=== PATIENT | male | born 1935 | race Caucasian/White ===

== ENCOUNTER 2019-09-30 18:00 | Inpatient (IN) | payer MEDICARE, OTHER ==
[2019-10-01 01:18] VITALS: BP 159/61
[2019-10-01] MEDS ORDERED: Magnesium Hydroxide (MOM) 30 mL UDC PO PRN (04:32)
[2019-10-01] MEDS: Docusate Sodium/Senna Tab PO SCH ×2 (08:15→17:15)
[2019-10-01] MEDS: Multivitamin Tab PO SCH (08:15)
[2019-10-01] MEDS: POLYETHYLENE GLYCOL 3350 17 GM PACK PO SCH (08:16)
--- NOTE | 2019-10-01 12:26 | Psychiatric Evaluation ---
DATE OF SERVICE: 10/01/2019 Staff was spoken to. The patient is interviewed. Mood is noted to be irritable. Affect is constricted. CHIEF COMPLAINT: "I don't know, they are not giving me full diet, they are giving me a balance diet and I don't like it. I am losing weight." HISTORY OF PRESENT ILLNESS: This is the first psychiatric hospitalization to [facility] for this patient who has been diagnosed to be depressed and is maintained on Remeron. The patient is being followed by Dr. López on an outpatient basis. The patient has been getting agitated and aggressive and has been isolating himself and not able to care for self and the patient's depression has been getting worse and hence the patient has been referred over here for stabilization. Chart is reviewed. The patient is interviewed. The patient at this time is more focused on his weight loss and not getting his bank statements and losing weight. PAST PSYCHIATRIC HISTORY: The patient denies any prior psychiatric hospitalizations. MEDICAL HISTORY: Physical examination is requested by Dr. Manley and is noted to be significant for ____. SUBSTANCE ABUSE HISTORY: None. 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 The patient is a resident of the halfway facility. MENTAL STATUS EXAMINATION: The patient is an 84-year-old thin built, superficially cooperative. Eye contact is noted to be poor. Mood is noted to be depressed. Affect is constricted. The patient is getting easily irritable and angry. Insight and judgment at this time are noted to be still impaired. Impulse control is noted to be poor. The patient is alert and aware that he is in the hospital. Attention span and concentration are noted to be poor at this time. The patient's short term memory is noted to be poor. Long-term memory seems to be fair, but the patient is preoccupied with his bank balance. The patient is denying any command hallucinations at this time. ASSESSMENT: AXIS I: Major depressive disorder, recurrent and severe. 1B: Dementia and behavioral change secondary to trait. AXIS II: None. AXIS III: As per Dr. Manley. IMMEDIATE TREATMENT PLAN: The patient is going to be observed on inpatient unit, provide him with supportive psychotherapy. The patient is going to be closely monitored. Once stabilized, the patient is going to be discharged to [facility] to be followed up on an outpatient basis. JOB# [id number]
[2019-10-01] MEDS ORDERED: Ipratropium Neb 0.5 mg/2.5 mL UD HHN PRN (12:45)
[2019-10-01] MEDS ORDERED: Albuterol Nebulizer 2.5mg/3mL HHN PRN (12:45)
--- NOTE | 2019-10-01 14:03 | History & Physical ---
ADMIT DATE: 10/01/2019 REASON FOR CONSULTATION: Medical management and clearance. The patient admitted to inpatient unit. HISTORY OF PRESENT ILLNESS: This an 84-year-old male with history of diabetes, hypertension, dementia, admitted from nursing facility under the service of Dr. López secondary to above complaints. The patient denies chest pain, shortness of breath, complains of coughing. PAST MEDICAL HISTORY: As mentioned in the history of present illness. PAST SURGICAL HISTORY: Denies surgeries in the past. ALLERGIES: No known drug allergies. MEDICATIONS: Tylenol, amlodipine, Dulcolax, Colace, magnesium, mirtazapine, multivitamin, MiraLax, and senna. FAMILY HISTORY: Noncontributory. SOCIAL HISTORY: The patient is a nonsmoker, drinks occasionally. Intravenous drug use. 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 REVIEW OF SYSTEMS: GENERAL: Complained of being weak. HEENT: No blurred vision or pain. LUNGS: No diagnosis of COPD. The patient has been coughing. HEART: The patient with hypertension. Denies coronary artery disease or myocardial infarction. ABDOMEN: No nausea, vomiting, pain. GENITOURINARY: The patient denies any increased frequency or dysuria. NEUROLOGIC: Currently being weak. PSYCHIATRIC: See above. ENDOCRINE: The patient with diabetes. HEMATOLOGY: No ischemia. PHYSICAL EXAMINATION: VITAL SIGNS: Blood pressure 139/76, respirations 18, pulse 64, temperature 98.2. GENERAL: Thin built elderly male ____. NECK: Supple. No mass. LUNGS: Equal breath sounds, otherwise clear to auscultation. HEART: Regular rate and rhythm without systolic ejection murmur. ABDOMEN: Soft, globular. : Positive excoriation, stage 4 decubitus ulcer in the sacrum. EXTREMITIES: No clubbing, cyanosis. NEUROLOGIC: The patient is alert. Please refer to Dr. López's dictated mental status exam. Cranial nerve 1, the patient is able to smell alcohol swab. Cranial nerve 2, able to read __a printed __ page. Cranial nerve 3, able to move eyeballs upward and outward Cranial nerve 4, able to move eyeballs inward and downward. Cranial nerve 5, able to _clench teeth and has normal sensation of___ forehead. Cranial nerve 6, able to move eyes laterally on both sides. Cranial nerve 7, able to move eyebrows up on both sides. Cranial nerve 8, able to hear finger rubs on both sides. Cranial nerve 9, this was offered, but the patient is refused. Cranial nerve 10, this was offered, but the patient is refused. Cranial nerve 11, this was offered, but the patient is refused. Cranial nerve 12, this was offered, but the patient is refused. Motor and sensory were equal and symmetrical. Gait is not seen. LABORATORY: WBC 6, hemoglobin 11, platelets 226. Rest of chemistry within normal range. Albumin 3.4. ASSESSMENT AND PLAN: Diabetes, hypertension, dementia, decubitus ulcer stage 1, anemia, thin built, low albumin. We will provide the patient with ADA diet and insulin sliding scale. We will try to titrate the patient's antihypertensive medication. Monitor hemoglobin and hematocrit. We will provide the patient with antiplatelet medication. The patient was made clear. We will continue to follow the patient with Dr. Maribel ross. JOB# [id number] [facility]
[2019-10-02] MEDS: guaiFENesin 200 MG/10 ML UDC PO PRN (07:52)
[2019-10-02] MEDS: Multivitamin Tab PO SCH (08:55)
[2019-10-02] MEDS: Docusate Sodium/Senna Tab PO SCH ×2 (08:55→17:06)
[2019-10-02] MEDS: POLYETHYLENE GLYCOL 3350 17 GM PACK PO SCH (08:55)
--- NOTE | 2019-10-02 12:55 | Internal Medicine Prog Note ---
Internal Medicine Subjective - Subjective Patient seen and examined:: with staff, chart reviewed Patient is:: awake, verbal, interactive Per staff patient has:: no adverse event, no episodes of fall, tolerating meds Internal Medicine Objective - Physical Exam Vitals and I&O: Vital Signs Temp 97.0 F 10/02/19 05:49 Pulse 67 10/02/19 08:55 Resp 18 10/02/19 05:49 BP 116/60 10/02/19 08:55 Pulse Ox 98 10/02/19 05:49 Intake & Output 10/01/19 10/02/19 10/02/19 18:59 06:59 18:59 Intake Total 1000 240 Balance 1000 240 Intake: Oral 1000 240 Other: # Voids 4 2 # Bowel Movements 1 1 Active Medications: Current Medications Acetaminophen (Tylenol) 650 mg PO Q6HR PRN PRN Reason: Pain (Mild 1-3) Stop: 11/30/19 04:44 Albuterol Sulfate (Albuterol 2.5mg/3ml Neb Ud) 2.5 mg HHN Q2HR PRN PRN Reason: Shortness of Breath or Wheeze Stop: 11/30/19 12:44 Amlodipine Besylate (Norvasc) 5 mg PO DAILY [facility] Stop: 11/30/19 08:59 Last Admin: 10/02/19 08:55 Dose: 5 mg Bisacodyl (Dulcolax 10 Mg Supp) 10 mg RC DAILY PRN PRN Reason: Constipation Stop: 11/30/19 04:31 Docusate Sodium (Colace) 100 mg PO BID PRN PRN Reason: Constipation Stop: 11/30/19 08:59 Donepezil HCl (Aricept) 10 mg PO [facility] Stop: 11/30/19 20:59 Last Admin: 10/01/19 22:00 Dose: 10 mg Guaifenesin (Robitussin) 200 mg PO Q4HR PRN PRN Reason: Cough or Congestion Stop: 11/30/19 12:44 Last Admin: 10/02/19 07:52 Dose: 200 mg Ipratropium [place] (Atrovent Neb 0.5mg/2.5ml) 0.5 mg HHN Q2HRT PRN PRN Reason: Shortness of Breath or Wheeze Stop: 11/30/19 12:44 Lorazepam (Ativan) 0.5 mg PO Q4HR PRN; Protocol PRN Reason: Anxiety Stop: 10/31/19 01:17 Magnesium Hydroxide (Milk Of Magnesia) 30 ml PO Q24HR PRN PRN Reason: Constipation Stop: 11/30/19 04:31 Mirtazapine (Remeron) 15 mg PO HS NITESH; Protocol Stop: 11/30/19 20:59 Last Admin: 10/01/19 22:00 Dose: 15 mg Multivitamins/Vitamin C (Theragran) 1 tab PO DAILY NIT[facility] Stop: 11/30/19 08:59 Last Admin: 10/02/19 08:55 Dose: 1 tab Polyethylene Glycol (Miralax) 17 gm PO DAILY N[facility] Stop: 11/30/19 08:59 Last Admin: 10/02/19 08:55 Dose: 17 gm Sennosides (Senna Plus 50 Mg-8.6 Mg) 1 tab PO BID NIT[facility] Stop: 11/30/19 08:59 Last Admin: 10/02/19 08:55 Dose: 1 tab General: demented, thin, bilateral temporal wasting HEENT: NC/AT, PERRLA, EOMI Neck: Supple, No JVD Lungs: CTAB Cardiovascular: RRR, Normal S1, Normal S2, with murmur Abdomen: soft, non-tender, thin, positive bowel sound Extremities: excoriation Neurological: no change Internal Medicine Assmt/Plan - Assessment Assessment: ASSESSMENT AND PLAN: Diabetes, hypertension, dementia, decubitus ulcer stage 1, anemia, thin built, low albumin. - Plan Plan: PLAN: We will provide the patient with ADA diet and insulin sliding scale. We will try to titrate the patient's antihypertensive medication. Monitor hemoglobin and hematocrit. We will provide the patient with antiplatelet medication. The patient was made clear. We will continue to follow the patient with Dr. Maribel ross.
--- NOTE | 2019-10-02 14:40 | Progress Notes ---
DATE: 10/02/2019 PSYCHIATRIC PROGRESS NOTE SUBJECTIVE: Staff was spoken to. The patient is interviewed. Mood is noted to be irritable. Affect is constricted. The patient is stating that he needed a thorough physical examination. Coping skills are noted to be extremely poor. The patient is demanding. The patient has no insight into his illness. The patient is being closely monitored. I encouraged to verbalize the concerns. The patient has been getting easily frustrated. The patient is currently on mirtazapine 15 mg at bedtime and has been able to tolerate the medication. ASSESSMENT: The patient is still depressed. PLAN: Plan to continue the patient with the supportive therapy. I encouraged the patient to verbalize the concerns rather than to act out. JOB# [id number]
[2019-10-03] MEDS: POLYETHYLENE GLYCOL 3350 17 GM PACK PO SCH (08:53)
[2019-10-03] MEDS: Docusate Sodium/Senna Tab PO SCH ×2 (08:53→17:10)
[2019-10-03] MEDS: Multivitamin Tab PO SCH (08:53)
--- NOTE | 2019-10-03 12:32 | Consultation ---
DATE OF CONSULTATION: 10/02/2019 REFERRING PHYSICIAN: Nelli Zavaleta M.D. and Tay López M.D. TYPE OF CONSULTATION: Psychology. HISTORY OF PRESENT ILLNESS: The patient is an 84-year-old male. The patient is a resident of [facility] in [place]. The following is by review of the medical record and by the patient's self-report. The patient presents as verbally aggressive and easily agitated. The patient stated that he was requiring of complete physical examination because he is losing weight due to not getting enough food at his placement and that they have changed his diet. The patient is demanding to be evaluated. The staff at the patient's facility reports the patient's depression had been worsening and that the patient had become difficult to redirect and unable to calm down. PAST MEDICAL HISTORY: Please see history and physical by Dr. Manley. PAST PSYCHIATRIC HISTORY: The patient is under the care of Dr. Tay López at his placement. The patient has a history of dementia as well as major depression. Records indicate no previous psychiatric hospitalizations to this facility. SUBSTANCE ABUSE HISTORY: The patient denied any alcohol, tobacco, illicit drug or recreational drug use. 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 The patient states that he is and has no children. However, the records indicate the patient has a son named Jeison. The patient stated that he was raised Confucianist, but is not particularly alevism. The patient denied any current legal problems or any history of physical abuse. MENTAL STATUS EXAMINATION: The patient appears to be his stated age and somewhat frail. Attitude is guarded. Eye contact is poor. Speech is delayed and loud. Mood is irritable and depressed. Affect is constricted. Thought process shows to be confused, argumentative and suspicious. The patient did not answer the questions about experiencing suicidal ideation with a plan or intention or having any wish to . The patient denied any delusions.; however, there may be possible paranoid ideation. The patient's behavior is easily agitated with anger outbursts according to the staff. Impulse control is inadequate. Concentration is poor. The patient was easily distracted and difficult to cognitively redirect. Sensorium is alert and oriented to self and place. The patient only participated in one part of the memory assessment. The patient was unable to repeat or recall the items given to him after several minutes. Short term memory appears to be impaired. Long-term memory appears to be fair, but needs further evaluation. The patient seemed to focus more on money problems throughout the discussion. The patient did not participate in the interpretation of proverbs. Insight is poor. Judgment is impaired. DIAGNOSTIC IMPRESSION: AXIS I: 1. Major depressive disorder, recurrent, severe. 2. Dementia with behavioral disturbance. AXIS II: Deferred. AXIS III: Per Dr. Manley. TREATMENT PLAN: The patient has been seen by Dr. Zavaleta for psychiatric evaluation and for the management of the patient's psychotropic medications. We will provide supportive psychotherapy to include reality orientation, differentiation and integration. We will provide coping strategies for phase of life issues. We will provide stress management to assist the patient in increasing his frustration tolerance. We will provide motivational enhancement for the patient to become compliant and stay compliant with all aspects of his care and treatment and to respond appropriately to staff direction. We will provide deescalation and limit setting. We will provide boundary awareness, limits and definitions. We will provide a daily opportunity for the patient to verbally contract for safety, i.e., no harm to others. The patient is unable to verbally contract for safety at this time. We will follow up in 2-3 days to continue treatment. Thank you, Dr. Zavaleta and Dr. López, for this consult and the opportunity to participate with you in this patient's care. JOB# [id number] [facility]
--- NOTE | 2019-10-03 14:50 | Progress Notes ---
DATE: 10/03/2019 SUBJECTIVE: Staff was spoken to. The patient is interviewed. Mood is noted to be irritable. Affect is constricted. Coping skills are noted to be extremely poor. The patient has been having difficult time. The patient is stating that he needs to get his money out to go to the restaurant. The patient has no insight into his illness. The patient has been having difficult time to cope with the stress. ASSESSMENT: The patient is still depressed and paranoid. PLAN: To continue the patient with the supportive therapy, I encouraged the patient to verbalize the concerns rather than to act out. JOB# [id number]
--- NOTE | 2019-10-03 17:13 | Internal Medicine Prog Note ---
Internal Medicine Subjective - Subjective Patient seen and examined:: with staff, chart reviewed Patient is:: awake, verbal, interactive Per staff patient has:: no adverse event, no episodes of fall, tolerating meds Internal Medicine Objective - Physical Exam Vitals and I&O: Vital Signs Temp 98.2 F 10/03/19 14:00 Pulse 66 10/03/19 14:00 Resp 20 10/03/19 14:00 BP 114/66 10/03/19 14:00 Pulse Ox 98 10/03/19 14:00 Intake & Output 10/02/19 10/03/19 10/03/19 18:59 06:59 18:59 Intake Total 1200 120 Balance 1200 120 Intake: Oral 1200 120 Other: # Voids 3 # Bowel Movements 1 0 Active Medications: Current Medications Acetaminophen (Tylenol) 650 mg PO Q6HR PRN PRN Reason: Pain (Mild 1-3) Stop: 11/30/19 04:44 Albuterol Sulfate (Albuterol 2.5mg/3ml Neb Ud) 2.5 mg HHN Q2HR PRN PRN Reason: Shortness of Breath or Wheeze Stop: 11/30/19 12:44 Amlodipine Besylate (Norvasc) 5 mg PO DAILY [facility] Stop: 11/30/19 08:59 Last Admin: 10/03/19 08:53 Dose: 5 mg Bisacodyl (Dulcolax 10 Mg Supp) 10 mg RC DAILY PRN PRN Reason: Constipation Stop: 11/30/19 04:31 Docusate Sodium (Colace) 100 mg PO BID PRN PRN Reason: Constipation Stop: 11/30/19 08:59 Donepezil HCl (Aricept) 10 mg PO HS [facility] Stop: 11/30/19 20:59 Last Admin: 10/02/19 20:05 Dose: 10 mg Guaifenesin (Robitussin) 200 mg PO Q4HR PRN PRN Reason: Cough or Congestion Stop: 11/30/19 12:44 Last Admin: 10/02/19 07:52 Dose: 200 mg Ipratropium [place] (Atrovent Neb 0.5mg/2.5ml) 0.5 mg HHN Q2HRT PRN PRN Reason: Shortness of Breath or Wheeze Stop: 11/30/19 12:44 Lorazepam (Ativan) 0.5 mg PO Q4HR PRN; Protocol PRN Reason: Anxiety Stop: 10/31/19 01:17 Magnesium Hydroxide (Milk Of Magnesia) 30 ml PO Q24HR PRN PRN Reason: Constipation Stop: 11/30/19 04:31 Mirtazapine (Remeron) 15 mg PO HS NITESH; Protocol Stop: 11/30/19 20:59 Last Admin: 10/02/19 20:06 Dose: 15 mg Multivitamins/Vitamin C (Theragran) 1 tab PO DAILY [facility] Stop: 11/30/19 08:59 Last Admin: 10/03/19 08:53 Dose: 1 tab Polyethylene Glycol (Miralax) 17 gm PO DAILY [facility] Stop: 11/30/19 08:59 Last Admin: 10/03/19 08:53 Dose: 17 gm Sennosides (Senna Plus 50 Mg-8.6 Mg) 1 tab PO BID N[facility] Stop: 11/30/19 08:59 Last Admin: 10/03/19 17:10 Dose: Not Given General: demented, thin, bilateral temporal wasting HEENT: NC/AT, PERRLA, EOMI Neck: Supple, No JVD Lungs: CTAB Cardiovascular: RRR, Normal S1, Normal S2, with murmur Abdomen: soft, non-tender, thin, positive bowel sound Extremities: excoriation Neurological: no change Internal Medicine Assmt/Plan - Assessment Assessment: ASSESSMENT AND PLAN: Diabetes, hypertension, dementia, decubitus ulcer stage 1, anemia, thin built, low albumin. - Plan Plan: PLAN: We will provide the patient with ADA diet and insulin sliding scale. We will try to titrate the patient's antihypertensive medication. Monitor hemoglobin and hematocrit. We will provide the patient with antiplatelet medication. The patient was made clear. We will continue to follow the patient with Dr. Maribel ross. Nutritional Asmnt/Malnutr-PDOC - Dietary Evaluation Malnutrition Findings (Please click <Entered> for more info): Nutritional Asmnt/Malnutrition Start: 10/03/19 09: 35 Text: Status: Complete Freq: Protocol: Document 10/03/19 09:35 [email or web address] (Rec: 10/03/19 09:42 [email or web address] [id number]) Nutritional Asmnt/Malnutrition Patient General Information Nutritional Screening High Risk Diagnosis Psychosis Pertinent Medical Hx/Surgical Hx Diabetes, HTN, dementia Subjective Information Patient was admitted from SNF. Current diet order provides 2300 kcal, 110 gm protein. Average oral intake ~87% of meals; pt eating ~2000 kcal, 95gm protein, adequate to meet nutrient needs. Tolerating current diet. Current Diet Order/ Nutrition Support soft, no concentrated sweets, No added sodium Patient / S.O Not Indicated Pertinent Medications dulcolax, colace, MOM, theragran, Miralax, senna Nutritional Hx/Data Height 1.75 m Height (Calculated Centimeters) 175.3 Current Weight (lbs) 55.338 kg Weight (Calculated Kilograms) 55.3 Weight (Calculated Grams) 13638.3 [place] Body Weight 160 % [place] Body Weight 76 Body Mass Index (BMI) 18.0 Recent Weight Change No Weight Status Underweight GI Symptoms GI Symptoms None Last BM 3/6 x 1 Difficult in: None Food Allergies No Cultural/Ethnic/Tenriism Belief none indicated Usual diet at home unknown Skin Integrity/Comment: Jah 18, dryness Current %PO Good (75-100%) Estimated Nutritional Goals BEE in Kcals: Adj wt of IBW Calories/Kcals/Kg IBW 72.7 25-30 kcal/kg Kcals Calculated ~2411-6168 kcal/day Protein: Adj wt of IBW Protein g/k.8-1 gm/kg using IBW Protein Calculated ~60-70 gm/day Fluid: ml ~1674-6811 ml/day (1 ml/kcal) Nutritional Problem 1. Problem Problem Underweight related to Etiology possible poor intake prior to admission aeb Signs/Symptoms: BMI 18, 76% IBW Intervention/Recommendation Comments 1. Continue current diet as tolerated by patient (pmhx DM and HTN). Patient currently meeting estimated nutrient needs with current oral intake , which should result in weight gain. If intake decreases or becomes inconsistent, add Ensure Enlive with meals to supplement calories due to BMI . Expected Outcomes/Goals Expected Outcomes/Goals Adequate nutrition to meet >75 % estimated needs, improved labs, skin remains intact, weight maintenance or trend toward ideal body weight. F/U MR 10/05-
[2019-10-03] MEDS: guaiFENesin 200 MG/10 ML UDC PO PRN (20:32)
[2019-10-04] MEDS: Docusate Sodium/Senna Tab PO SCH ×2 (08:55→17:59)
[2019-10-04] MEDS: Multivitamin Tab PO SCH (08:55)
[2019-10-04] MEDS: POLYETHYLENE GLYCOL 3350 17 GM PACK PO SCH (08:55)
--- NOTE | 2019-10-04 13:14 | Internal Medicine Prog Note ---
Internal Medicine Subjective - Subjective Patient seen and examined:: with staff, chart reviewed Patient is:: awake, verbal, interactive Per staff patient has:: no adverse event, no episodes of fall, tolerating meds Internal Medicine Objective - Physical Exam Vitals and I&O: Vital Signs Temp 97.6 F 10/04/19 05:54 Pulse 76 10/04/19 08:56 Resp 17 10/04/19 05:54 BP 111/54 10/04/19 08:56 Pulse Ox 92 10/04/19 05:54 Intake & Output 10/03/19 10/04/19 10/04/19 17:59 06:59 18:59 Intake Total Balance Intake: Oral Other: # Voids # Bowel Movements Active Medications: Current Medications Acetaminophen (Tylenol) 650 mg PO Q6HR PRN PRN Reason: Pain (Mild 1-3) Stop: 11/30/19 04:44 Albuterol Sulfate (Albuterol 2.5mg/3ml Neb Ud) 2.5 mg HHN Q2HR PRN PRN Reason: Shortness of Breath or Wheeze Stop: 11/30/19 12:44 Amlodipine Besylate (Norvasc) 5 mg PO DAILY [facility] Stop: 11/30/19 08:59 Last Admin: 10/04/19 08:56 Dose: 5 mg Bisacodyl (Dulcolax 10 Mg Supp) 10 mg RC DAILY PRN PRN Reason: Constipation Stop: 11/30/19 04:31 Docusate Sodium (Colace) 100 mg PO BID PRN PRN Reason: Constipation Stop: 11/30/19 08:59 Donepezil HCl (Aricept) 10 mg PO HS [facility] Stop: 11/30/19 20:59 Last Admin: 10/03/19 20:32 Dose: 10 mg Guaifenesin (Robitussin) 200 mg PO Q4HR PRN PRN Reason: Cough or Congestion Stop: 11/30/19 12:44 Last Admin: 10/03/19 20:32 Dose: 200 mg Ipratropium [place] (Atrovent Neb 0.5mg/2.5ml) 0.5 mg HHN Q2HRT PRN PRN Reason: Shortness of Breath or Wheeze Stop: 11/30/19 12:44 Lorazepam (Ativan) 0.5 mg PO Q4HR PRN; Protocol PRN Reason: Anxiety Stop: 10/31/19 01:17 Magnesium Hydroxide (Milk Of Magnesia) 30 ml PO Q24HR PRN PRN Reason: Constipation Stop: 11/30/19 04:31 Mirtazapine (Remeron) 15 mg PO HS [facility]; Protocol Stop: 11/30/19 20:59 Last Admin: 10/03/19 20:32 Dose: 15 mg Multivitamins/Vitamin C (Theragran) 1 tab PO DAILY [facility] Stop: 11/30/19 08:59 Last Admin: 10/04/19 08:55 Dose: 1 tab Polyethylene Glycol (Miralax) 17 gm PO DAILY [facility] Stop: 11/30/19 08:59 Last Admin: 10/04/19 08:55 Dose: Not Given Quetiapine Fumarate (Seroquel) 12.5 mg PO HS [facility]; Protocol Stop: 12/03/19 20:59 Sennosides (Senna Plus 50 Mg-8.6 Mg) 1 tab PO BID [facility] Stop: 11/30/19 08:59 Last Admin: 10/04/19 08:55 Dose: Not Given General: demented, thin, bilateral temporal wasting HEENT: NC/AT, PERRLA, EOMI Neck: Supple, No JVD Lungs: CTAB Cardiovascular: RRR, Normal S1, Normal S2, with murmur Abdomen: soft, non-tender, thin, positive bowel sound Extremities: excoriation Neurological: no change Internal Medicine Assmt/Plan - Assessment Assessment: ASSESSMENT AND PLAN: Diabetes, hypertension, dementia, decubitus ulcer stage 1, anemia, thin built, low albumin. - Plan Plan: PLAN: We will provide the patient with ADA diet and insulin sliding scale. We will try to titrate the patient's antihypertensive medication. Monitor hemoglobin and hematocrit. We will provide the patient with antiplatelet medication. The patient was made clear. We will continue to follow the patient with youDr. López. Nutritional Asmnt/Malnutr-PDOC - Dietary Evaluation Malnutrition Findings (Please click <Entered> for more info): Nutritional Asmnt/Malnutrition Start: 10/03/19 09: 35 Text: Status: Complete Freq: Protocol: Document 10/03/19 09:35 ERIBERTO (Rec: 10/03/19 09:42 MMHÉCTOR ROCHA- FNS1) Nutritional Asmnt/Malnutrition Patient General Information Nutritional Screening High Risk Diagnosis Psychosis Pertinent Medical Hx/Surgical Hx Diabetes, HTN, dementia Subjective Information Patient was admitted from SNF. Current diet order provides 2300 kcal, 110 gm protein. Average oral intake ~87% of meals; pt eating ~2000 kcal, 95gm protein, adequate to meet nutrient needs. Tolerating current diet. Current Diet Order/ Nutrition Support soft, no concentrated sweets, No added sodium Patient / S.O Not Indicated Pertinent Medications dulcolax, colace, MOM, theragran, Miralax, senna Nutritional Hx/Data Height 1.75 m Height (Calculated Centimeters) 175.3 Current Weight (lbs) 55.338 kg Weight (Calculated Kilograms) 55.3 Weight (Calculated Grams) 93995.3 [place] Body Weight 160 % [place] Body Weight 76 Body Mass Index (BMI) 18.0 Recent Weight Change No Weight Status Underweight GI Symptoms GI Symptoms None Last BM 3/6 x 1 Difficult in: None Food Allergies No Cultural/Ethnic/Scientologist Belief none indicated Usual diet at home unknown Skin Integrity/Comment: Jah 18, dryness Current %PO Good (75-100%) Estimated Nutritional Goals BEE in Kcals: Adj wt of IBW Calories/Kcals/Kg IBW 72.7 25-30 kcal/kg Kcals Calculated ~8573-7382 kcal/day Protein: Adj wt of IBW Protein g/k.8-1 gm/kg using IBW Protein Calculated ~60-70 gm/day Fluid: ml ~9947-2819 ml/day (1 ml/kcal) Nutritional Problem 1. Problem Problem Underweight related to Etiology possible poor intake prior to admission aeb Signs/Symptoms: BMI 18, 76% IBW Intervention/Recommendation Comments 1. Continue current diet as tolerated by patient (pmhx DM and HTN). Patient currently meeting estimated nutrient needs with current oral intake , which should result in weight gain. If intake decreases or becomes inconsistent, add Ensure Enlive with meals to supplement calories due to BMI . Expected Outcomes/Goals Expected Outcomes/Goals Adequate nutrition to meet >75 % estimated needs, improved labs, skin remains intact, weight maintenance or trend toward ideal body weight. F/U MR 10/05-
--- NOTE | 2019-10-05 01:32 | Progress Notes ---
DATE: 10/04/2019 PSYCHIATRIC PROGRESS NOTE SUBJECTIVE: Staff was spoken to. The patient is interviewed. Mood is noted to be irritable. Affect is constricted. The patient's insight and judgment are noted to be still impaired. Impulse control is noted to be limited. The patient is stating that it is too noisy in here and he is not able to fall asleep and could not figure it out why he has to be in here. The patient is very much worried with regard to his money being taken away from the bank and he wants me to call the bank to find out what is the amount that he has. The patient also has not been making much sense and wants to go to the fast food place outside. ASSESSMENT: The patient is still demented, impulsive, and paranoid. PLAN: To start the patient on low dose of Seroquel at nighttime, continue the mirtazapine, and follow up. JOB# [id number]
[2019-10-05] MEDS: POLYETHYLENE GLYCOL 3350 17 GM PACK PO SCH (09:08)
[2019-10-05] MEDS: Docusate Sodium/Senna Tab PO SCH ×2 (09:08→16:30)
[2019-10-05] MEDS: Multivitamin Tab PO SCH (09:08)
--- NOTE | 2019-10-05 12:53 | Internal Medicine Prog Note ---
Internal Medicine Subjective - Subjective Patient seen and examined:: with staff, chart reviewed Patient is:: awake, verbal, interactive Per staff patient has:: no adverse event, no episodes of fall, tolerating meds Internal Medicine Objective - Physical Exam Vitals and I&O: Vital Signs Temp 97.8 F 10/05/19 06:25 Pulse 71 10/05/19 09:08 Resp 20 10/05/19 06:25 BP 137/69 10/05/19 09:08 Pulse Ox 99 10/05/19 06:25 Intake & Output 10/04/19 10/05/19 10/05/19 18:59 06:59 18:59 Intake Total 800 120 Balance 800 120 Intake: Oral 800 120 Other: # Voids 3 3 # Bowel Movements 1 0 Active Medications: Current Medications Acetaminophen (Tylenol) 650 mg PO Q6HR PRN PRN Reason: Pain (Mild 1-3) Stop: 11/30/19 04:44 Albuterol Sulfate (Albuterol 2.5mg/3ml Neb Ud) 2.5 mg HHN Q2HR PRN PRN Reason: Shortness of Breath or Wheeze Stop: 11/30/19 12:44 Amlodipine Besylate (Norvasc) 5 mg PO DAILY [facility] Stop: 11/30/19 08:59 Last Admin: 10/05/19 09:08 Dose: 5 mg Bisacodyl (Dulcolax 10 Mg Supp) 10 mg RC DAILY PRN PRN Reason: Constipation Stop: 11/30/19 04:31 Docusate Sodium (Colace) 100 mg PO BID PRN PRN Reason: Constipation Stop: 11/30/19 08:59 Donepezil HCl (Aricept) 10 mg PO HS [facility] Stop: 11/30/19 20:59 Last Admin: 10/04/19 20:57 Dose: 10 mg Guaifenesin (Robitussin) 200 mg PO Q4HR PRN PRN Reason: Cough or Congestion Stop: 11/30/19 12:44 Last Admin: 10/03/19 20:32 Dose: 200 mg Ipratropium [place] (Atrovent Neb 0.5mg/2.5ml) 0.5 mg HHN Q2HRT PRN PRN Reason: Shortness of Breath or Wheeze Stop: 11/30/19 12:44 Lorazepam (Ativan) 0.5 mg PO Q4HR PRN; Protocol PRN Reason: Anxiety Stop: 10/31/19 01:17 Magnesium Hydroxide (Milk Of Magnesia) 30 ml PO Q24HR PRN PRN Reason: Constipation Stop: 11/30/19 04:31 Mirtazapine (Remeron) 15 mg PO HS [facility]; Protocol Stop: 11/30/19 20:59 Last Admin: 10/04/19 20:57 Dose: 15 mg Multivitamins/Vitamin C (Theragran) 1 tab PO DAILY [facility] Stop: 11/30/19 08:59 Last Admin: 10/05/19 09:08 Dose: 1 tab Polyethylene Glycol (Miralax) 17 gm PO DAILY [facility] Stop: 11/30/19 08:59 Last Admin: 10/05/19 09:08 Dose: 17 gm Quetiapine Fumarate (Seroquel) 12.5 mg PO HS [facility]; Protocol Stop: 12/03/19 20:59 Sennosides (Senna Plus 50 Mg-8.6 Mg) 1 tab PO BID [facility] Stop: 11/30/19 08:59 Last Admin: 10/05/19 09:08 Dose: 1 tab General: demented, thin, bilateral temporal wasting HEENT: NC/AT, PERRLA, EOMI Neck: Supple, No JVD Lungs: CTAB Cardiovascular: RRR, Normal S1, Normal S2, with murmur Abdomen: soft, non-tender, thin, positive bowel sound Extremities: excoriation Neurological: no change Internal Medicine Assmt/Plan - Assessment Assessment: ASSESSMENT AND PLAN: Diabetes, hypertension, dementia, decubitus ulcer stage 1, anemia, thin built, low albumin. - Plan Plan: PLAN: We will provide the patient with ADA diet and insulin sliding scale. We will try to titrate the patient's antihypertensive medication. Monitor hemoglobin and hematocrit. We will provide the patient with antiplatelet medication. The patient was made clear. We will continue to follow the patient with Dr. Maribel ross. Nutritional Asmnt/Malnutr-PDOC - Dietary Evaluation Malnutrition Findings (Please click <Entered> for more info): Nutritional Asmnt/Malnutrition Start: 10/03/19 09: 35 Text: Status: Complete Freq: Protocol: Document 10/03/19 09:35 MMHÉCTOR (Rec: 10/03/19 09:42 ERIBERTO ROCHA- FNS1) Nutritional Asmnt/Malnutrition Patient General Information Nutritional Screening High Risk Diagnosis Psychosis Pertinent Medical Hx/Surgical Hx Diabetes, HTN, dementia Subjective Information Patient was admitted from SNF. Current diet order provides 2300 kcal, 110 gm protein. Average oral intake ~87% of meals; pt eating ~2000 kcal, 95gm protein, adequate to meet nutrient needs. Tolerating current diet. Current Diet Order/ Nutrition Support soft, no concentrated sweets, No added sodium Patient / S.O Not Indicated Pertinent Medications dulcolax, colace, MOM, theragran, Miralax, senna Nutritional Hx/Data Height 1.75 m Height (Calculated Centimeters) 175.3 Current Weight (lbs) 55.338 kg Weight (Calculated Kilograms) 55.3 Weight (Calculated Grams) 58741.3 [place] Body Weight 160 % [place] Body Weight 76 Body Mass Index (BMI) 18.0 Recent Weight Change No Weight Status Underweight GI Symptoms GI Symptoms None Last BM 3/6 x 1 Difficult in: None Food Allergies No Cultural/Ethnic/Alevism Belief none indicated Usual diet at home unknown Skin Integrity/Comment: Jah 18, dryness Current %PO Good (75-100%) Estimated Nutritional Goals BEE in Kcals: Adj wt of IBW Calories/Kcals/Kg IBW 72.7 25-30 kcal/kg Kcals Calculated ~8312-8458 kcal/day Protein: Adj wt of IBW Protein g/k.8-1 gm/kg using IBW Protein Calculated ~60-70 gm/day Fluid: ml ~2634-8765 ml/day (1 ml/kcal) Nutritional Problem 1. Problem Problem Underweight related to Etiology possible poor intake prior to admission aeb Signs/Symptoms: BMI 18, 76% IBW Intervention/Recommendation Comments 1. Continue current diet as tolerated by patient (pmhx DM and HTN). Patient currently meeting estimated nutrient needs with current oral intake , which should result in weight gain. If intake decreases or becomes inconsistent, add Ensure Enlive with meals to supplement calories due to BMI . Expected Outcomes/Goals Expected Outcomes/Goals Adequate nutrition to meet >75 % estimated needs, improved labs, skin remains intact, weight maintenance or trend toward ideal body weight. F/U MR 10/05-
--- NOTE | 2019-10-05 22:14 | Progress Notes ---
DATE: 10/05/2019 PSYCHOLOGY PROGRESS NOTE SUBJECTIVE: The patient is seen and is interviewed. Case is discussed with staff. The patient is in bed, resting comfortably and is verbally arousable. The patient states that he was discussing with the social science manager items that were relevant to his discharge. The patient stated he did not want to repeat some of the answers to this field underwriter's questions. The patient complained of it being too noisy and not being able to fall asleep or stay asleep. The patient stated that he does not feel he needs to be in the hospital. The patient's concerns are focused on finances and is asking this field underwriter to talk to someone on the staff, i.e., nurse or social science manager to contact his bank. OBJECTIVE: Mood is irritable. Affect is constricted. Thought process shows to be confused along with perseveration on discharge and personal finances. Case management is aware. The patient denied any hallucinations or delusions. The patient is not making much sense and apparently is confused. There may be some delusional content. The patient is withdrawn and isolates in his room. There is possibly some paranoid ideation present. This needs further evaluation. Staff reports the patient has been compliant with medication. ASSESSMENT: The patient's impulsivity as well as confusion and history of dementia continue. PLAN: The patient was started on a low dose of Seroquel at nighttime according to the attending psychiatrist as well as mirtazapine. We will follow up with supportive psychotherapy. We provided reality orientation, differentiation and integration. We provided cognitive refocusing on relevant concerns for the patient, i.e., to become compliant with his care and treatment and follow through with staff direction. We provided coping strategies for phase of life issues. The other issues that are relevant to the patient's discharge and other lifestyle concerns have been passed on to case management. We will follow up in 2-3 days to continue the present treatment if the patient remains admitted on the unit and is able to demonstrate the capacity to benefit from psychology services. JOB# [id number] CK
--- NOTE | 2019-10-06 00:27 | Progress Notes ---
DATE: 10/05/2019 PSYCHIATRIC PROGRESS NOTE SUBJECTIVE: Staff was spoken to. The patient is interviewed. Mood is noted to be irritable. Affect is constricted. The patient continues to be paranoid. Insight and judgment at this time are noted to be very much impaired. Impulse control is noted to be limited. Coping skills are noted to be limited. The patient has no insight into his illness. The patient is isolative and withdrawn. ASSESSMENT: The patient is still very paranoid. PLAN: To continue the patient with the current medications and followup. JOB# [id number]
[2019-10-06] MEDS: POLYETHYLENE GLYCOL 3350 17 GM PACK PO SCH (08:23)
[2019-10-06] MEDS: Multivitamin Tab PO SCH (08:24)
[2019-10-06] MEDS: Docusate Sodium/Senna Tab PO SCH ×3 (08:24→16:59)
[2019-10-06] MEDS ORDERED: Hydrocodone/APAP 5mg/325mg Tab PO PRN (09:31)
--- NOTE | 2019-10-06 13:05 | Internal Medicine Prog Note ---
Internal Medicine Subjective - Subjective Patient seen and examined:: with staff, chart reviewed Patient is:: awake, verbal, interactive Per staff patient has:: no adverse event, no episodes of fall, tolerating meds Internal Medicine Objective - Physical Exam Vitals and I&O: Vital Signs Temp 98 F 10/06/19 05:45 Pulse 73 10/06/19 08:59 Resp 20 10/06/19 05:45 BP 99/63 10/06/19 08:59 Pulse Ox 97 10/06/19 05:45 Intake & Output 10/05/19 10/06/19 10/06/19 18:59 06:59 18:59 Intake Total 1200 360 Balance 1200 360 Intake: Oral 1200 360 Other: # Voids 2 2 # Bowel Movements 1 0 Active Medications: Current Medications Acetaminophen (Tylenol) 650 mg PO Q6HR PRN PRN Reason: Pain (Mild 1-3) Stop: 11/30/19 04:44 Last Admin: 10/06/19 08:53 Dose: 650 mg Acetaminophen/Hydrocodone Bitart ([place] 5mg/325mg) 1 tab PO Q6H PRN PRN Reason: severe pain 7-10 Stop: 12/05/19 09:30 Albuterol Sulfate (Albuterol 2.5mg/3ml Neb Ud) 2.5 mg HHN Q2HR PRN PRN Reason: Shortness of Breath or Wheeze Stop: 11/30/19 12:44 Amlodipine Besylate (Norvasc) 5 mg PO DAILY [facility] Stop: 11/30/19 08:59 Last Admin: 10/06/19 08:59 Dose: Not Given Bisacodyl (Dulcolax 10 Mg Supp) 10 mg RC DAILY PRN PRN Reason: Constipation Stop: 11/30/19 04:31 Docusate Sodium (Colace) 100 mg PO BID PRN PRN Reason: Constipation Stop: 11/30/19 08:59 Donepezil HCl (Aricept) 10 mg PO HS [facility] Stop: 11/30/19 20:59 Last Admin: 10/05/19 20:30 Dose: 10 mg Guaifenesin (Robitussin) 200 mg PO Q4HR PRN PRN Reason: Cough or Congestion Stop: 11/30/19 12:44 Last Admin: 10/03/19 20:32 Dose: 200 mg Ipratropium [place] (Atrovent Neb 0.5mg/2.5ml) 0.5 mg HHN Q2HRT PRN PRN Reason: Shortness of Breath or Wheeze Stop: 11/30/19 12:44 Lorazepam (Ativan) 0.5 mg PO Q4HR PRN; Protocol PRN Reason: Anxiety Stop: 10/31/19 01:17 Magnesium Hydroxide (Milk Of Magnesia) 30 ml PO Q24HR PRN PRN Reason: Constipation Stop: 11/30/19 04:31 Mirtazapine (Remeron) 15 mg PO HS [facility]; Protocol Stop: 11/30/19 20:59 Last Admin: 10/05/19 20:30 Dose: 15 mg Multivitamins/Vitamin C (Theragran) 1 tab PO DAILY [facility] Stop: 11/30/19 08:59 Last Admin: 10/06/19 08:24 Dose: 1 tab Polyethylene Glycol (Miralax) 17 gm PO DAILY [facility] Stop: 11/30/19 08:59 Last Admin: 10/06/19 08:23 Dose: 17 gm Quetiapine Fumarate (Seroquel) 12.5 mg PO HS [facility]; Protocol Stop: 12/03/19 20:59 Sennosides (Senna Plus 50 Mg-8.6 Mg) 1 tab PO BID [facility] Stop: 11/30/19 08:59 Last Admin: 10/06/19 08:24 Dose: 1 tab General: demented, thin, bilateral temporal wasting HEENT: NC/AT, PERRLA, EOMI Neck: Supple, No JVD Lungs: CTAB Cardiovascular: RRR, Normal S1, Normal S2, with murmur Abdomen: soft, non-tender, thin, positive bowel sound Extremities: excoriation Neurological: no change Internal Medicine Assmt/Plan - Assessment Assessment: ASSESSMENT AND PLAN: Diabetes, hypertension, dementia, decubitus ulcer stage 1, anemia, thin built, low albumin. - Plan Plan: PLAN: We will provide the patient with ADA diet and insulin sliding scale. We will try to titrate the patient's antihypertensive medication. Monitor hemoglobin and hematocrit. We will provide the patient with antiplatelet medication. The patient was made clear. We will continue to follow the patient with youDr. López. Nutritional Asmnt/Malnutr-PDOC - Dietary Evaluation Malnutrition Findings (Please click <Entered> for more info): Nutritional Asmnt/Malnutrition Start: 10/03/19 09: 35 Text: Status: Complete Freq: Protocol: Document 10/03/19 09:35 KADIECarolyn (Rec: 10/03/19 09:42 ERIBERTO AJ- FNS1) Nutritional Asmnt/Malnutrition Patient General Information Nutritional Screening High Risk Diagnosis Psychosis Pertinent Medical Hx/Surgical Hx Diabetes, HTN, dementia Subjective Information Patient was admitted from SNF. Current diet order provides 2300 kcal, 110 gm protein. Average oral intake ~87% of meals; pt eating ~2000 kcal, 95gm protein, adequate to meet nutrient needs. Tolerating current diet. Current Diet Order/ Nutrition Support soft, no concentrated sweets, No added sodium Patient / S.O Not Indicated Pertinent Medications dulcolax, colace, MOM, theragran, Miralax, senna Nutritional Hx/Data Height 1.75 m Height (Calculated Centimeters) 175.3 Current Weight (lbs) 55.338 kg Weight (Calculated Kilograms) 55.3 Weight (Calculated Grams) 52033.3 [place] Body Weight 160 % [place] Body Weight 76 Body Mass Index (BMI) 18.0 Recent Weight Change No Weight Status Underweight GI Symptoms GI Symptoms None Last BM 3/6 x 1 Difficult in: None Food Allergies No Cultural/Ethnic/Lutheran Belief none indicated Usual diet at home unknown Skin Integrity/Comment: Jah 18, dryness Current %PO Good (75-100%) Estimated Nutritional Goals BEE in Kcals: Adj wt of IBW Calories/Kcals/Kg IBW 72.7 25-30 kcal/kg Kcals Calculated ~8602-3077 kcal/day Protein: Adj wt of IBW Protein g/k.8-1 gm/kg using IBW Protein Calculated ~60-70 gm/day Fluid: ml ~4030-9437 ml/day (1 ml/kcal) Nutritional Problem 1. Problem Problem Underweight related to Etiology possible poor intake prior to admission aeb Signs/Symptoms: BMI 18, 76% IBW Intervention/Recommendation Comments 1. Continue current diet as tolerated by patient (pmhx DM and HTN). Patient currently meeting estimated nutrient needs with current oral intake , which should result in weight gain. If intake decreases or becomes inconsistent, add Ensure Enlive with meals to supplement calories due to BMI . Expected Outcomes/Goals Expected Outcomes/Goals Adequate nutrition to meet >75 % estimated needs, improved labs, skin remains intact, weight maintenance or trend toward ideal body weight. F/U MR 10/05-
--- NOTE | 2019-10-06 23:53 | Progress Notes ---
DATE: 10/06/2019 PSYCHIATRIC PROGRESS NOTE SUBJECTIVE: Staff was spoken to. The patient is interviewed. Mood is noted to be irritable. Affect is constricted. The patient's insight and judgment at this time are noted to be still impaired. Impulse control is noted to be limited. The patient has been demanding that he should be discharged back to the [facility] because he has all his belongings and money there and he states that he needs to go to the bank to figure it out how much money he has. The patient is getting easily frustrated in here. ASSESSMENT: The patient is still depressed. PLAN: To continue the patient with the current medications and coordinate with the dialysis social worker with regards to discharge planning. JOB# [id number]
[2019-10-07] MEDS: Docusate Sodium/Senna Tab PO SCH ×2 (08:30→17:08)
[2019-10-07] MEDS: POLYETHYLENE GLYCOL 3350 17 GM PACK PO SCH (08:30)
[2019-10-07] MEDS: Multivitamin Tab PO SCH (08:38)
--- NOTE | 2019-10-07 13:06 | Internal Medicine Prog Note ---
Internal Medicine Subjective - Subjective Patient seen and examined:: with staff, chart reviewed Patient is:: awake, verbal, interactive Per staff patient has:: no adverse event, no episodes of fall, tolerating meds Internal Medicine Objective - Physical Exam Vitals and I&O: Vital Signs Temp 97.4 F 10/07/19 06:00 Pulse 64 10/07/19 08:28 Resp 18 10/07/19 06:00 BP 109/67 10/07/19 08:28 Pulse Ox 92 10/07/19 06:00 Intake & Output 10/06/19 10/07/19 10/07/19 18:59 06:59 18:59 Intake Total 950 120 Balance 950 120 Intake: Oral 950 120 Other: # Voids 4 3 # Bowel Movements 0 0 Active Medications: Current Medications Acetaminophen (Tylenol) 650 mg PO Q6HR PRN PRN Reason: Pain (Mild 1-3) Stop: 11/30/19 04:44 Last Admin: 10/06/19 08:53 Dose: 650 mg Acetaminophen/Hydrocodone Bitart ([place] 5mg/325mg) 1 tab PO Q6H PRN PRN Reason: severe pain 7-10 Stop: 12/05/19 09:30 Albuterol Sulfate (Albuterol 2.5mg/3ml Neb Ud) 2.5 mg HHN Q2HR PRN PRN Reason: Shortness of Breath or Wheeze Stop: 11/30/19 12:44 Amlodipine Besylate (Norvasc) 5 mg PO DAILY [facility] Stop: 11/30/19 08:59 Last Admin: 10/07/19 08:28 Dose: Not Given Bisacodyl (Dulcolax 10 Mg Supp) 10 mg RC DAILY PRN PRN Reason: Constipation Stop: 11/30/19 04:31 Docusate Sodium (Colace) 100 mg PO BID PRN PRN Reason: Constipation Stop: 11/30/19 08:59 Donepezil HCl (Aricept) 10 mg PO HS [facility] Stop: 11/30/19 20:59 Last Admin: 10/06/19 20:30 Dose: 10 mg Guaifenesin (Robitussin) 200 mg PO Q4HR PRN PRN Reason: Cough or Congestion Stop: 11/30/19 12:44 Last Admin: 10/03/19 20:32 Dose: 200 mg Ipratropium [place] (Atrovent Neb 0.5mg/2.5ml) 0.5 mg HHN Q2HRT PRN PRN Reason: Shortness of Breath or Wheeze Stop: 11/30/19 12:44 Lorazepam (Ativan) 0.5 mg PO Q4HR PRN; Protocol PRN Reason: Anxiety Stop: 10/31/19 01:17 Magnesium Hydroxide (Milk Of Magnesia) 30 ml PO Q24HR PRN PRN Reason: Constipation Stop: 11/30/19 04:31 Mirtazapine (Remeron) 15 mg PO HS [facility]; Protocol Stop: 11/30/19 20:59 Last Admin: 10/06/19 20:30 Dose: 15 mg Multivitamins/Vitamin C (Theragran) 1 tab PO DAILY [facility] Stop: 11/30/19 08:59 Last Admin: 10/07/19 08:38 Dose: 1 tab Polyethylene Glycol (Miralax) 17 gm PO DAILY [facility] Stop: 11/30/19 08:59 Last Admin: 10/07/19 08:30 Dose: 17 gm Quetiapine Fumarate (Seroquel) 12.5 mg PO HS [facility]; Protocol Stop: 12/03/19 20:59 Last Admin: 10/06/19 20:30 Dose: 12.5 mg Sennosides (Senna Plus 50 Mg-8.6 Mg) 1 tab PO BID [facility] Stop: 11/30/19 08:59 Last Admin: 10/07/19 08:30 Dose: Not Given General: demented, thin, bilateral temporal wasting HEENT: NC/AT, PERRLA, EOMI Neck: Supple, No JVD Lungs: CTAB Cardiovascular: RRR, Normal S1, Normal S2, with murmur Abdomen: soft, non-tender, thin, positive bowel sound Extremities: excoriation Neurological: no change Internal Medicine Assmt/Plan - Assessment Assessment: ASSESSMENT AND PLAN: Diabetes, hypertension, dementia, decubitus ulcer stage 1, anemia, thin built, low albumin. - Plan Plan: PLAN: We will provide the patient with ADA diet and insulin sliding scale. We will try to titrate the patient's antihypertensive medication. Monitor hemoglobin and hematocrit. We will provide the patient with antiplatelet medication. The patient was made clear. We will continue to follow the patient with Dr. Maribel ross. Nutritional Asmnt/Malnutr-PDOC - Dietary Evaluation Malnutrition Findings (Please click <Entered> for more info): Nutritional Asmnt/Malnutrition Start: 10/03/19 09: 35 Text: Status: Complete Freq: Protocol: Document 10/03/19 09:35 ERIBERTO (Rec: 10/03/19 09:42 [email or web address] ROCHA- [id number]) Nutritional Asmnt/Malnutrition Patient General Information Nutritional Screening High Risk Diagnosis Psychosis Pertinent Medical Hx/Surgical Hx Diabetes, HTN, dementia Subjective Information Patient was admitted from SNF. Current diet order provides 2300 kcal, 110 gm protein. Average oral intake ~87% of meals; pt eating ~2000 kcal, 95gm protein, adequate to meet nutrient needs. Tolerating current diet. Current Diet Order/ Nutrition Support soft, no concentrated sweets, No added sodium Patient / S.O Not Indicated Pertinent Medications dulcolax, colace, MOM, theragran, Miralax, senna Nutritional Hx/Data Height 1.75 m Height (Calculated Centimeters) 175.3 Current Weight (lbs) 55.338 kg Weight (Calculated Kilograms) 55.3 Weight (Calculated Grams) 59111.3 [place] Body Weight 160 % [place] Body Weight 76 Body Mass Index (BMI) 18.0 Recent Weight Change No Weight Status Underweight GI Symptoms GI Symptoms None Last BM 3/6 x 1 Difficult in: None Food Allergies No Cultural/Ethnic/Yazdanism Belief none indicated Usual diet at home unknown Skin Integrity/Comment: Jah 18, dryness Current %PO Good (75-100%) Estimated Nutritional Goals BEE in Kcals: Adj wt of IBW Calories/Kcals/Kg IBW 72.7 25-30 kcal/kg Kcals Calculated ~9125-0255 kcal/day Protein: Adj wt of IBW Protein g/k.8-1 gm/kg using IBW Protein Calculated ~60-70 gm/day Fluid: ml ~4802-6382 ml/day (1 ml/kcal) Nutritional Problem 1. Problem Problem Underweight related to Etiology possible poor intake prior to admission aeb Signs/Symptoms: BMI 18, 76% IBW Intervention/Recommendation Comments 1. Continue current diet as tolerated by patient (pmhx DM and HTN). Patient currently meeting estimated nutrient needs with current oral intake , which should result in weight gain. If intake decreases or becomes inconsistent, add Ensure Enlive with meals to supplement calories due to BMI . Expected Outcomes/Goals Expected Outcomes/Goals Adequate nutrition to meet >75 % estimated needs, improved labs, skin remains intact, weight maintenance or trend toward ideal body weight. F/U MR 10/05-
--- NOTE | 2019-10-07 21:41 | Progress Notes ---
DATE: 10/07/2019 PSYCHOLOGY PROGRESS NOTE SUBJECTIVE: The patient is seen and is interviewed. Case is discussed with staff. The patient presents as somewhat friendlier this visit. The patient continued to perseverate on being discharged back to his snf facility. The patient had multiple questions about his belongings and money and other issues that require either family assistance or the high school social studies tutor assistance at his placement. The patient is still frustrated and has poor insight into his illness. OBJECTIVE: Mood is irritable. Affect is constricted. Thought process shows to be somewhat confused and perseverating on discharge. The patient is very demanding according to the staff. The patient did not answer questions about hallucinations or delusions. ASSESSMENT: The patient's depression continues. PLAN: We provided remotivation for the patient to become compliant with his care and treatment. We provided reality integration as well as cognitive refocusing and redirection for the patient to focus on his treatment versus being distracted by issues connected with lifestyle and family responsibilities. We provided coping strategies for phase of life issues. We will follow up in 2-3 days if the patient remains on the unit and is willing to participate in this type of treatment. JOB# [id number] [place]
--- NOTE | 2019-10-08 01:30 | Progress Notes ---
DATE: 10/07/2019 IDENTIFYING DATA: The patient is an 84-year-old resident of [facility]. Information obtained by directly interviewing the patient as well as reviewing the admission papers. DIAGNOSES AT THE TIME OF ADMISSION: AXIS I: Major depressive disorder, recurrent and severe. AXIS IB: Dementia and behavioral change, secondary trait. AXIS II: None. AXIS III: As per Dr. Manley. HOSPITAL COURSE AND RESPONSE TO TREATMENT: The patient has been observed on inpatient unit, provided with supportive psychotherapy. The patient has been noted to be very paranoid and has been worried about his money in the bank and the patient has been started on the low dose of the Seroquel that was given at 12.5 mg and the patient has been continued on mirtazapine 15 mg. The patient with these medications has been observed and was noted to be doing fairly well and hence the patient was finally discharged on the 10/07/2019 for a followup on outpatient basis. MENTAL STATUS EXAMINATION AT THE TIME OF DISCHARGE: The patient's mood is noted to be less irritable. Affect is appropriate. The patient has paranoia, but denies any command hallucinations. Insight and judgment are also noted to be improving at the time of the discharge. CONDITION AT THE TIME OF DISCHARGE: Noted to be stable since the patient continues to be paranoid and has been placed on low dose of the Seroquel that was given at 25 mg. The patient is going to be followed up by Dr. López on an outpatient basis. JOB# [id number]
== END 2019-10-07 18:15 | DRG 885 ==
LOC: GERO 10-01 00:45
PROVIDERS: ADMIT Psychiatry & Neurology Psychiatry; ATTEND Psychiatry & Neurology Psychiatry
DX: F33.2 Major depressive disorder, recurrent severe without psychotic features (principal); F03.91 Unspecified dementia, unspecified severity, with behavioral disturbance; I10 Essential (primary) hypertension; F03.90 Unspecified dementia, unspecified severity, without behavioral disturbance, psychotic disturbance, mood disturbance, and anxiety; L89.91 Pressure ulcer of unspecified site, stage 1; E11.9 Type 2 diabetes mellitus without complications; D64.9 Anemia, unspecified; Z79.899 Other long term (current) drug therapy
CPT/HCPCS: 83036-90; Z7610